=== PATIENT | male | born 1945 | race Caucasian/White ===

== ENCOUNTER 2020-10-04 10:45 | Inpatient (IN) ==
[2020-10-04] MEDS ORDERED: SODIUM CHLORIDE 0.9% 1,000 ML IV STA ×2 (11:18→12:13)
[2020-10-04 11:27] LABS: Basophils % 0.3 % (0.0-0.8); Hematocrit 45.2 VOL% (42.0-52.0); Hemoglobin 14.5 GM/DL (14.0-18.0); Immature Granulocytes % 4.1 %; Immature Granulocytes Absolute 0.44 #; Lymphocytes # 0.3 10*3/uL (1.4-4.0); Lymphocytes % 2.7 % (21.2-54.2); Mean Corpuscular HGB Conc 32.1 GM/DL (32-36); Mean Corpuscular Volume 99.1 FL (87-102); Mean Platelet Volume 9.7 FL (9.6-12.0); Monocytes % 3.7 % (1.7-12.7); Neutrophils % 89.2 % (38.7-73.9); Platelet Count 187 T/CUMM (130-400); Red Blood Count 4.56 MC/CUMM (3.8-5.5); Red Cell Distribution Width 20.3 % (9.3-17.3); White Blood Count 10.7 T/CUMM (4-12)
[2020-10-04 11:46] LABS: PT Patient Result 10.9 SECS (9.8-11.9); Partial Thromboplastin Time 24.9 SECS (23.9-33.8)
[2020-10-04 11:49] LABS: Band Neutrophils 5 % (0-10); Lymphocytes 3 % (20-55); Segmented Neutrophils 90 % (50-85); Total Cells Counted 100
[2020-10-04 11:50] LABS: Platelet Estimate Adequate
[2020-10-04] MEDS ORDERED: PIPERACILLIN/TAZOBACTAM 3,375 MG in SODIUM CHLORIDE 0.9% 100 ML IV STA (12:13)
[2020-10-04] MEDS ORDERED: DEXAMETHASONE 4 MG/1 ML VIAL IV STA (12:13)
[2020-10-04] MEDS ORDERED: SODIUM CHLORIDE 0.9% 500 ML IV STA (12:15)
[2020-10-04 12:21] LABS: Albumin 2.2 G/DL (3.4-5.0); Bilirubin,Total 0.6 MG/DL (0.2-1.0); Calcium 9.8 MG/DL (8.5-10.1); Osmolality,Calculated 281.1 MOS/KG (273-304); Potassium 5.9 MMOL/L (3.5-5.1); Total Protein 6.7 G/DL (5.0-7.5)
[2020-10-04] MEDS ORDERED: DEXTROSE 50% 25 GM/50 ML VIAL IV PRN (15:26)
[2020-10-04] MEDS ORDERED: hydrALAZINE 20 MG/1 ML VIAL IV PRN (15:26)
[2020-10-04] MEDS ORDERED: GLUCAGON 1 MG VIAL IM PRN (15:26)
[2020-10-04] MEDS ORDERED: DOCUSATE SODIUM 100 MG CAPSULE PO PRN (15:26)
[2020-10-04] MEDS ORDERED: ONDANSETRON 4 MG/2 ML VIAL IV PRN (15:26)
[2020-10-04] MEDS ORDERED: SODIUM CHLORIDE 0.9% 1,000 ML IV SCH (15:30)
[2020-10-04 15:52] LABS: Folate 18.1 NG/ML (5.38-24.0)
[2020-10-04 15:55] LABS: Thyroid Stimulating Hormone 1.52 uIU/ml (0.358-3.74)
[2020-10-04] MEDS ORDERED: RITUXIMAB 10 MG/ML IV SCH (16:00)
[2020-10-04] MEDS ORDERED: methylPREDNISolone SOD SUC 40 MG/1 ML VIAL IV SCH (17:00)
[2020-10-04] MEDS: THEOPHYLLINE ER 300 MG TABLET PO SCH (17:25)
[2020-10-04] MEDS: ENOXAPARIN 40 MG/0.4 ML SYRINGE SUBCUT SCH (17:25)
[2020-10-04] MEDS: LIDOCAINE 2% VISCOUS 100 ML BOTTLE SWISH/SPIT SCH ×2 (18:02→20:50)
[2020-10-04] MEDS: DORNASE ALFA 2.5 MG/2.5 ML VIAL RESP TX SCH (20:00)
[2020-10-04] MEDS: ATORVASTATIN 10 MG TABLET PO SCH (20:50)
[2020-10-04] MEDS: HYDROXYCHLOROQUINE 200 MG TABLET PO SCH (20:50)
[2020-10-04] MEDS: PIPERACILLIN/TAZOBACTAM 3,375 MG in SODIUM CHLORIDE 0.9% 100 ML IV SCH (20:59)
[2020-10-05] MEDS: LIDOCAINE 2% VISCOUS 100 ML BOTTLE SWISH/SPIT SCH ×6 (00:57→20:47)
[2020-10-05] MEDS: PIPERACILLIN/TAZOBACTAM 3,375 MG in SODIUM CHLORIDE 0.9% 100 ML IV SCH ×3 (05:00→20:42)
[2020-10-05 06:30] LABS: Basophils % 0.2 % (0.0-0.8); Hematocrit 34.3 VOL% (42.0-52.0); Hemoglobin 11.1 GM/DL (14.0-18.0); Immature Granulocytes % 4.3 %; Immature Granulocytes Absolute 0.24 #; Lymphocytes # 0.2 10*3/uL (1.4-4.0); Lymphocytes % 2.9 % (21.2-54.2); Mean Corpuscular HGB Conc 32.4 GM/DL (32-36); Mean Corpuscular Volume 97.4 FL (87-102); Mean Platelet Volume 9.7 FL (9.6-12.0); Monocytes % 4.7 % (1.7-12.7); Neutrophils % 87.9 % (38.7-73.9); Platelet Count 122 T/CUMM (130-400); Red Blood Count 3.52 MC/CUMM (3.8-5.5); Red Cell Distribution Width 19.6 % (9.3-17.3); White Blood Count 5.6 T/CUMM (4-12)
[2020-10-05 06:47] LABS: Calcium 8.4 MG/DL (8.5-10.1); Osmolality,Calculated 282.4 MOS/KG (273-304); Potassium 3.9 MMOL/L (3.5-5.1)
[2020-10-05 07:07] LABS: Band Neutrophils 4 % (0-10); Hypochromasia Slight; Lymphocytes 4 % (20-55); Metamyelocytes 1 %; Microcytosis 1+; Myelocytes 1 %; Segmented Neutrophils 88 % (50-85); Total Cells Counted 100
[2020-10-05 07:08] LABS: Platelet Estimate Adequate
[2020-10-05] MEDS ORDERED: SENNA 8.6 MG TABLET PO SCH (09:00)
[2020-10-05] MEDS: THEOPHYLLINE ER 300 MG TABLET PO SCH ×2 (09:06→17:20)
[2020-10-05] MEDS: amLODIPine 10 MG TABLET PO SCH (09:06)
[2020-10-05] MEDS: PANTOPRAZOLE 40 MG TABLET PO SCH (09:06)
[2020-10-05] MEDS: DEXAMETHASONE 4 MG/1 ML VIAL IV SCH (09:06)
[2020-10-05] MEDS: METOPROLOL SUCCINATE XL 25 MG TABLET PO SCH (09:06)
[2020-10-05] MEDS: HYDROXYCHLOROQUINE 200 MG TABLET PO SCH ×2 (09:06→20:42)
[2020-10-05] MEDS: MULTIVITAMIN LIQUID (CENTRUM) 60 ML BOTTLE PO SCH (09:07)
[2020-10-05] MEDS: BREO INH SCH (09:08)
[2020-10-05] MEDS: DORNASE ALFA 2.5 MG/2.5 ML VIAL RESP TX SCH ×2 (09:42→19:35)
[2020-10-05] MEDS ORDERED: ALUM/MAG/SIMETH/LIDO VISC 1:1 30 ML BOTTLE PO ONE (20:23)
[2020-10-05] MEDS: ATORVASTATIN 10 MG TABLET PO SCH (20:41)
[2020-10-05] MEDS: SENNA 8.6 MG TABLET PO SCH (20:42)
[2020-10-06] MEDS: LIDOCAINE 2% VISCOUS 100 ML BOTTLE SWISH/SPIT SCH ×6 (00:59→21:33)
[2020-10-06] MEDS: PIPERACILLIN/TAZOBACTAM 3,375 MG in SODIUM CHLORIDE 0.9% 100 ML IV SCH ×3 (03:31→21:32)
[2020-10-06 06:03] LABS: PT Patient Result 10.7 SECS (9.8-11.9); Partial Thromboplastin Time 31.1 SECS (23.9-33.8)
[2020-10-06 06:04] LABS: Basophils % 0.5 % (0.0-0.8); Hematocrit 37.1 VOL% (42.0-52.0); Hemoglobin 12.2 GM/DL (14.0-18.0); Immature Granulocytes % 5.5 %; Immature Granulocytes Absolute 0.36 #; Lymphocytes # 0.1 10*3/uL (1.4-4.0); Lymphocytes % 1.8 % (21.2-54.2); Mean Corpuscular HGB Conc 32.9 GM/DL (32-36); Mean Corpuscular Volume 96.4 FL (87-102); Mean Platelet Volume 9.7 FL (9.6-12.0); Monocytes % 2.1 % (1.7-12.7); NRBC # 0.03 10*3/uL; Neutrophils % 90.1 % (38.7-73.9); Platelet Count 139 T/CUMM (130-400); Red Blood Count 3.85 MC/CUMM (3.8-5.5); Red Cell Distribution Width 19.7 % (9.3-17.3); White Blood Count 6.5 T/CUMM (4-12)
[2020-10-06 06:28] LABS: Band Neutrophils 3 % (0-10); Hypochromasia Slight; Lymphocytes 7 % (20-55); Microcytosis Slight; Nucleated Red Blood Cells 1 (0-5); Platelet Estimate Adequate; Segmented Neutrophils 88 % (50-85); Total Cells Counted 100
[2020-10-06 06:31] LABS: Calcium 8.8 MG/DL (8.5-10.1); Osmolality,Calculated 282.3 MOS/KG (273-304); Potassium 4.5 MMOL/L (3.5-5.1)
[2020-10-06] MEDS: DORNASE ALFA 2.5 MG/2.5 ML VIAL RESP TX SCH ×2 (07:30→20:25)
[2020-10-06] MEDS ORDERED: diphenhydrAMINE 50 MG/1 ML VIAL IM ONE (08:00)
[2020-10-06] MEDS ORDERED: MEPERIDINE 50 MG/1 ML VIAL IM ONE (08:00)
[2020-10-06] MEDS ORDERED: BENZONATATE 100 MG CAPSULE PO ONE (08:00)
[2020-10-06] MEDS ORDERED: LIDOCAINE 2% 20 ML VIAL RESP TX ONE (08:30)
[2020-10-06] MEDS ORDERED: LIDOCAINE 2% VISCOUS 100 ML BOTTLE SWISH/SPIT ONE (08:30)
[2020-10-06] MEDS ORDERED: LIDOCAINE 1% 20 ML VIAL MISC INJ ONE (08:30)
[2020-10-06] MEDS: amLODIPine 10 MG TABLET PO SCH (11:45)
[2020-10-06] MEDS: METOPROLOL SUCCINATE XL 25 MG TABLET PO SCH (11:46)
[2020-10-06] MEDS: PANTOPRAZOLE 40 MG TABLET PO SCH (11:46)
[2020-10-06] MEDS: DEXAMETHASONE 4 MG/1 ML VIAL IV SCH (11:46)
[2020-10-06] MEDS: THEOPHYLLINE ER 300 MG TABLET PO SCH ×2 (11:46→16:13)
[2020-10-06] MEDS: HYDROXYCHLOROQUINE 200 MG TABLET PO SCH ×2 (11:47→21:30)
[2020-10-06] MEDS: BREO INH SCH (11:48)
[2020-10-06] MEDS: MULTIVITAMIN LIQUID (CENTRUM) 60 ML BOTTLE PO SCH (11:48)
[2020-10-06] MEDS: ENOXAPARIN 40 MG/0.4 ML SYRINGE SUBCUT SCH (18:26)
[2020-10-06] MEDS: ATORVASTATIN 10 MG TABLET PO SCH (21:30)
[2020-10-06] MEDS: SENNA 8.6 MG TABLET PO SCH (21:31)
[2020-10-07] MEDS: LIDOCAINE 2% VISCOUS 100 ML BOTTLE SWISH/SPIT SCH ×6 (00:39→21:05)
[2020-10-07 04:29] LABS: Basophils % 0.5 % (0.0-0.8); Hematocrit 37.4 VOL% (42.0-52.0); Hemoglobin 12.2 GM/DL (14.0-18.0); Immature Granulocytes % 4.8 %; Immature Granulocytes Absolute 0.38 #; Lymphocytes # 0.4 10*3/uL (1.4-4.0); Lymphocytes % 4.4 % (21.2-54.2); Mean Corpuscular HGB Conc 32.6 GM/DL (32-36); Mean Corpuscular Volume 97.1 FL (87-102); Mean Platelet Volume 9.3 FL (9.6-12.0); Monocytes % 2.3 % (1.7-12.7); NRBC # 0.03 10*3/uL; Platelet Count 133 T/CUMM (130-400); Red Blood Count 3.85 MC/CUMM (3.8-5.5); Red Cell Distribution Width 19.4 % (9.3-17.3)
[2020-10-07] MEDS: PIPERACILLIN/TAZOBACTAM 3,375 MG in SODIUM CHLORIDE 0.9% 100 ML IV SCH ×3 (04:47→21:05)
[2020-10-07 04:53] LABS: Calcium 8.8 MG/DL (8.5-10.1); Osmolality,Calculated 277.5 MOS/KG (273-304); Potassium 4.4 MMOL/L (3.5-5.1)
[2020-10-07 04:55] LABS: Band Neutrophils 3 % (0-10); Hypochromasia Slight; Lymphocytes 1 % (20-55); Metamyelocytes 1 %; Microcytosis 1+; Segmented Neutrophils 90 % (50-85); Total Cells Counted 100
[2020-10-07] MEDS: DORNASE ALFA 2.5 MG/2.5 ML VIAL RESP TX SCH ×2 (07:28→19:40)
[2020-10-07] MEDS: DEXAMETHASONE 4 MG/1 ML VIAL IV SCH (08:35)
[2020-10-07] MEDS: ALBUTEROL/IPRATROPIUM 3 ML NEB RESP TX PRN (08:45)
[2020-10-07 09:01] LABS: ABG Base Excess -4.4 MMOL/L (-2.5-2.5); ABG HCO3 20.5 MMOL/L (20-26); ABG PCO2 34.9 MM HG (35-48); ABG PH 7.368 (7.35-7.45); ABG PO2 55.8 MM HG (80-95); ABG TCO2 17.5 MMOL/L (23-27)
[2020-10-07] MEDS: MULTIVITAMIN LIQUID (CENTRUM) 60 ML BOTTLE PO SCH (09:37)
[2020-10-07] MEDS: amLODIPine 10 MG TABLET PO SCH (09:37)
[2020-10-07] MEDS: PANTOPRAZOLE 40 MG TABLET PO SCH (09:37)
[2020-10-07] MEDS: HYDROXYCHLOROQUINE 200 MG TABLET PO SCH ×2 (09:37→21:04)
[2020-10-07] MEDS: THEOPHYLLINE ER 300 MG TABLET PO SCH ×2 (09:37→17:06)
[2020-10-07] MEDS: METOPROLOL SUCCINATE XL 25 MG TABLET PO SCH (09:37)
[2020-10-07] MEDS: BREO INH SCH (09:38)
[2020-10-07] MEDS: ENOXAPARIN 40 MG/0.4 ML SYRINGE SUBCUT SCH (17:07)
[2020-10-07] MEDS: ATORVASTATIN 10 MG TABLET PO SCH (21:04)
[2020-10-07] MEDS: SENNA 8.6 MG TABLET PO SCH (21:06)
[2020-10-07] MEDS: ACETAMINOPHEN 325 MG TABLET PO PRN (21:11)
[2020-10-08] MEDS: LIDOCAINE 2% VISCOUS 100 ML BOTTLE SWISH/SPIT SCH ×6 (02:17→21:40)
[2020-10-08] MEDS: PIPERACILLIN/TAZOBACTAM 3,375 MG in SODIUM CHLORIDE 0.9% 100 ML IV SCH (04:52)
[2020-10-08 06:40] LABS: Basophils % 0.4 % (0.0-0.8); Eosinophils % 0.1 % (0.00-10.9); Hematocrit 37.1 VOL% (42.0-52.0); Hemoglobin 12.3 GM/DL (14.0-18.0); Immature Granulocytes % 2.7 %; Immature Granulocytes Absolute 0.19 #; Lymphocytes # 0.2 10*3/uL (1.4-4.0); Lymphocytes % 2.7 % (21.2-54.2); Mean Corpuscular HGB Conc 33.2 GM/DL (32-36); Mean Corpuscular Volume 96.9 FL (87-102); Mean Platelet Volume 9.6 FL (9.6-12.0); Monocytes % 1.7 % (1.7-12.7); Neutrophils % 92.4 % (38.7-73.9); Platelet Count 130 T/CUMM (130-400); Red Blood Count 3.83 MC/CUMM (3.8-5.5); Red Cell Distribution Width 19.2 % (9.3-17.3)
[2020-10-08 06:58] LABS: Calcium 9.1 MG/DL (8.5-10.1); Osmolality,Calculated 278.5 MOS/KG (273-304); Potassium 3.7 MMOL/L (3.5-5.1)
[2020-10-08 07:20] LABS: Band Neutrophils 2 % (0-10); Hypochromasia 1+; Lymphocytes 1 % (20-55); Metamyelocytes 1 %; Microcytosis 1+; Segmented Neutrophils 95 % (50-85); Total Cells Counted 100
[2020-10-08] MEDS: DORNASE ALFA 2.5 MG/2.5 ML VIAL RESP TX SCH ×2 (07:26→19:56)
[2020-10-08] MEDS: METOPROLOL SUCCINATE XL 25 MG TABLET PO SCH (08:18)
[2020-10-08] MEDS: THEOPHYLLINE ER 300 MG TABLET PO SCH ×2 (08:19→17:20)
[2020-10-08] MEDS: PANTOPRAZOLE 40 MG TABLET PO SCH (08:19)
[2020-10-08] MEDS: DEXAMETHASONE 4 MG/1 ML VIAL IV SCH (08:19)
[2020-10-08] MEDS: HYDROXYCHLOROQUINE 200 MG TABLET PO SCH (08:19)
[2020-10-08] MEDS: amLODIPine 2.5 MG TABLET PO SCH (08:19)
[2020-10-08] MEDS: MULTIVITAMIN LIQUID (CENTRUM) 60 ML BOTTLE PO SCH (08:20)
[2020-10-08] MEDS: BREO INH SCH (08:20)
[2020-10-08] MEDS: LEVOFLOXACIN INJ 750 MG in PREMIX 1 EACH IV SCH (12:41)
[2020-10-08] MEDS: ENOXAPARIN 40 MG/0.4 ML SYRINGE SUBCUT SCH (17:20)
[2020-10-08] MEDS: SENNA 8.6 MG TABLET PO SCH (21:37)
[2020-10-08] MEDS: ATORVASTATIN 10 MG TABLET PO SCH (21:37)
[2020-10-08] MEDS: ACETAMINOPHEN 325 MG TABLET PO PRN (21:37)
[2020-10-09] MEDS ORDERED: diphenhydrAMINE 50 MG/1 ML VIAL IV ONE (00:17)
[2020-10-09] MEDS: ZALEPLON 5 MG CAPSULE PO PRN ×2 (00:35→21:32)
[2020-10-09] MEDS: LIDOCAINE 2% VISCOUS 100 ML BOTTLE SWISH/SPIT SCH ×6 (00:35→22:59)
[2020-10-09] MEDS: DORNASE ALFA 2.5 MG/2.5 ML VIAL RESP TX SCH ×2 (07:48→19:48)
[2020-10-09] MEDS: DEXAMETHASONE 4 MG/1 ML VIAL IV SCH (09:31)
[2020-10-09] MEDS: MULTIVITAMIN LIQUID (CENTRUM) 60 ML BOTTLE PO SCH (09:32)
[2020-10-09] MEDS: METOPROLOL SUCCINATE XL 25 MG TABLET PO SCH (09:32)
[2020-10-09] MEDS: LEVOFLOXACIN INJ 750 MG in PREMIX 1 EACH IV SCH (09:32)
[2020-10-09] MEDS: amLODIPine 2.5 MG TABLET PO SCH (09:32)
[2020-10-09] MEDS: PANTOPRAZOLE 40 MG TABLET PO SCH (09:33)
[2020-10-09] MEDS: THEOPHYLLINE ER 300 MG TABLET PO SCH ×2 (09:33→17:18)
[2020-10-09] MEDS: BREO INH SCH (09:48)
[2020-10-09] MEDS: ACETAMINOPHEN 325 MG TABLET PO PRN (11:12)
[2020-10-09] MEDS: ENOXAPARIN 40 MG/0.4 ML SYRINGE SUBCUT SCH (17:18)
[2020-10-09] MEDS: ATORVASTATIN 10 MG TABLET PO SCH (21:32)
[2020-10-09] MEDS: SENNA 8.6 MG TABLET PO SCH (22:58)
[2020-10-10] MEDS: LIDOCAINE 2% VISCOUS 100 ML BOTTLE SWISH/SPIT SCH ×6 (02:11→22:16)
[2020-10-10] MEDS: DORNASE ALFA 2.5 MG/2.5 ML VIAL RESP TX SCH ×2 (07:59→19:49)
[2020-10-10] MEDS: amLODIPine 2.5 MG TABLET PO SCH (08:52)
[2020-10-10] MEDS: PANTOPRAZOLE 40 MG TABLET PO SCH (08:52)
[2020-10-10] MEDS: THEOPHYLLINE ER 300 MG TABLET PO SCH ×2 (08:52→17:21)
[2020-10-10] MEDS: METOPROLOL SUCCINATE XL 25 MG TABLET PO SCH (08:52)
[2020-10-10] MEDS: DEXAMETHASONE 4 MG/1 ML VIAL IV SCH (08:53)
[2020-10-10] MEDS: BREO INH SCH (08:53)
[2020-10-10] MEDS: LEVOFLOXACIN INJ 750 MG in PREMIX 1 EACH IV SCH (08:53)
[2020-10-10] MEDS: MULTIVITAMIN LIQUID (CENTRUM) 60 ML BOTTLE PO SCH (08:53)
[2020-10-10] MEDS: ENOXAPARIN 40 MG/0.4 ML SYRINGE SUBCUT SCH (17:22)
[2020-10-10] MEDS: ZALEPLON 5 MG CAPSULE PO PRN (22:12)
[2020-10-10] MEDS: ATORVASTATIN 10 MG TABLET PO SCH (22:13)
[2020-10-10] MEDS: ACETAMINOPHEN 325 MG TABLET PO PRN (22:13)
[2020-10-10] MEDS: SENNA 8.6 MG TABLET PO SCH (22:16)
[2020-10-11] MEDS ORDERED: diphenhydrAMINE 50 MG/1 ML VIAL IV ONE (01:53)
[2020-10-11] MEDS: LIDOCAINE 2% VISCOUS 100 ML BOTTLE SWISH/SPIT SCH ×6 (02:11→21:27)
[2020-10-11] MEDS: DORNASE ALFA 2.5 MG/2.5 ML VIAL RESP TX SCH ×2 (07:30→19:25)
[2020-10-11] MEDS: PANTOPRAZOLE 40 MG TABLET PO SCH ×2 (08:36→17:35)
[2020-10-11] MEDS: METOPROLOL SUCCINATE XL 25 MG TABLET PO SCH (08:36)
[2020-10-11] MEDS: THEOPHYLLINE ER 300 MG TABLET PO SCH ×2 (08:36→17:35)
[2020-10-11] MEDS: amLODIPine 2.5 MG TABLET PO SCH (08:36)
[2020-10-11] MEDS: LEVOFLOXACIN INJ 750 MG in PREMIX 1 EACH IV SCH (08:36)
[2020-10-11] MEDS: BREO INH SCH (08:37)
[2020-10-11] MEDS: DEXAMETHASONE 4 MG/1 ML VIAL IV SCH (08:37)
[2020-10-11] MEDS: MULTIVITAMIN LIQUID (CENTRUM) 60 ML BOTTLE PO SCH (08:37)
[2020-10-11] MEDS ORDERED: DOCUSATE SODIUM 100 MG CAPSULE PO PRN (10:36)
[2020-10-11] MEDS: FLUCONAZOLE 200 MG TABLET PO SCH (10:53)
[2020-10-11] MEDS: POLYETHYLENE GLYCOL POWDER 17 GM PACK PO SCH (10:53)
[2020-10-11] MEDS: CLORAZEPATE 3.75 MG TABLET PO SCH ×2 (14:04→21:23)
[2020-10-11] MEDS: CLOTRIMAZOLE 10 MG TROCHE PO SCH ×3 (14:04→21:35)
[2020-10-11] MEDS: NICOTINE 21 MG/24 HR PATCH TRANSDERM SCH (15:15)
[2020-10-11] MEDS: ZINC OXIDE PASTE 113 GM TUBE TOP SCH ×2 (15:17→21:26)
[2020-10-11] MEDS: ENOXAPARIN 40 MG/0.4 ML SYRINGE SUBCUT SCH (17:35)
[2020-10-11] MEDS: ATORVASTATIN 10 MG TABLET PO SCH (21:23)
[2020-10-11] MEDS: SENNA 8.6 MG TABLET PO SCH (21:24)
[2020-10-12] MEDS: LIDOCAINE 2% VISCOUS 100 ML BOTTLE SWISH/SPIT SCH ×6 (01:04→21:14)
[2020-10-12] MEDS: CLOTRIMAZOLE 10 MG TROCHE PO SCH ×5 (05:36→21:12)
[2020-10-12] MEDS: PANTOPRAZOLE 40 MG TABLET PO SCH ×2 (06:40→17:34)
[2020-10-12] MEDS: DORNASE ALFA 2.5 MG/2.5 ML VIAL RESP TX SCH ×2 (07:20→19:31)
[2020-10-12] MEDS: DEXAMETHASONE 4 MG/1 ML VIAL IV SCH (08:32)
[2020-10-12] MEDS: NICOTINE 21 MG/24 HR PATCH TRANSDERM SCH (08:32)
[2020-10-12] MEDS: FLUCONAZOLE 200 MG TABLET PO SCH (08:33)
[2020-10-12] MEDS: THEOPHYLLINE ER 300 MG TABLET PO SCH ×2 (08:33→16:05)
[2020-10-12] MEDS: METOPROLOL SUCCINATE XL 25 MG TABLET PO SCH (08:33)
[2020-10-12] MEDS: POLYETHYLENE GLYCOL POWDER 17 GM PACK PO SCH (08:33)
[2020-10-12] MEDS: CLORAZEPATE 3.75 MG TABLET PO SCH ×3 (08:33→21:12)
[2020-10-12] MEDS: amLODIPine 2.5 MG TABLET PO SCH (08:33)
[2020-10-12] MEDS: ZINC OXIDE PASTE 113 GM TUBE TOP SCH ×2 (08:34→21:11)
[2020-10-12] MEDS: MULTIVITAMIN LIQUID (CENTRUM) 60 ML BOTTLE PO SCH (08:35)
[2020-10-12] MEDS: BREO INH SCH (08:35)
[2020-10-12] MEDS: LEVOFLOXACIN INJ 500 MG in PREMIX 1 EACH IV SCH (08:36)
[2020-10-12] MEDS: ENOXAPARIN 40 MG/0.4 ML SYRINGE SUBCUT SCH (17:11)
[2020-10-12] MEDS: ATORVASTATIN 10 MG TABLET PO SCH (21:12)
[2020-10-12] MEDS: SENNA 8.6 MG TABLET PO SCH (21:12)
[2020-10-13] MEDS: LIDOCAINE 2% VISCOUS 100 ML BOTTLE SWISH/SPIT SCH ×2 (03:10→05:34)
[2020-10-13 05:41] LABS: Basophils % 0.3 % (0.0-0.8); Hematocrit 37.5 VOL% (42.0-52.0); Immature Granulocytes Absolute 0.35 #; Lymphocytes # 0.3 10*3/uL (1.4-4.0); Lymphocytes % 4.4 % (21.2-54.2); Mean Corpuscular Volume 96.9 FL (87-102); Mean Platelet Volume 10.9 FL (9.6-12.0); Monocytes % 1.8 % (1.7-12.7); NRBC # 0.02 10*3/uL; Neutrophils % 88.5 % (38.7-73.9); Platelet Count 113 T/CUMM (130-400); Red Blood Count 3.87 MC/CUMM (3.8-5.5); Red Cell Distribution Width 18.7 % (9.3-17.3); White Blood Count 7.1 T/CUMM (4-12)
[2020-10-13 05:56] LABS: Albumin 1.7 G/DL (3.4-5.0); Bilirubin,Total 1.2 MG/DL (0.2-1.0); Calcium 9.1 MG/DL (8.5-10.1); Osmolality,Calculated 283.7 MOS/KG (273-304); Potassium 4.4 MMOL/L (3.5-5.1); Total Protein 5.4 G/DL (6.4-8.2)
[2020-10-13 06:03] LABS: Band Neutrophils 2 % (0-10); Hypochromasia 1+; Lymphocytes 2 % (20-55); Microcytosis 1+; Platelet Estimate Decreased; Segmented Neutrophils 92 % (50-85); Total Cells Counted 100
[2020-10-13] MEDS: PANTOPRAZOLE 40 MG TABLET PO SCH ×2 (06:29→17:35)
[2020-10-13] MEDS: CLOTRIMAZOLE 10 MG TROCHE PO SCH ×5 (06:29→21:41)
[2020-10-13] MEDS: DORNASE ALFA 2.5 MG/2.5 ML VIAL RESP TX SCH ×2 (07:55→19:34)
[2020-10-13] MEDS: METOPROLOL SUCCINATE XL 25 MG TABLET PO SCH (08:52)
[2020-10-13] MEDS: CLORAZEPATE 3.75 MG TABLET PO SCH ×3 (08:52→21:34)
[2020-10-13] MEDS: NICOTINE 21 MG/24 HR PATCH TRANSDERM SCH (08:53)
[2020-10-13] MEDS: FLUCONAZOLE 200 MG TABLET PO SCH (08:53)
[2020-10-13] MEDS: amLODIPine 2.5 MG TABLET PO SCH (08:53)
[2020-10-13] MEDS: THEOPHYLLINE ER 300 MG TABLET PO SCH ×2 (08:54→18:05)
[2020-10-13] MEDS: DEXAMETHASONE 4 MG/1 ML VIAL IV SCH (08:54)
[2020-10-13] MEDS: ZINC OXIDE PASTE 113 GM TUBE TOP SCH ×2 (08:55→21:04)
[2020-10-13] MEDS: BREO INH SCH (08:56)
[2020-10-13] MEDS: LEVOFLOXACIN INJ 500 MG in PREMIX 1 EACH IV SCH (08:56)
[2020-10-13] MEDS: POLYETHYLENE GLYCOL POWDER 17 GM PACK PO SCH (10:18)
[2020-10-13] MEDS: MULTIVITAMIN LIQUID (CENTRUM) 60 ML BOTTLE PO SCH (10:23)
[2020-10-13] MEDS: ENOXAPARIN 40 MG/0.4 ML SYRINGE SUBCUT SCH (21:33)
[2020-10-13] MEDS: ATORVASTATIN 10 MG TABLET PO SCH (21:34)
[2020-10-13] MEDS: SENNA 8.6 MG TABLET PO SCH (21:35)
[2020-10-14] MEDS: CLOTRIMAZOLE 10 MG TROCHE PO SCH ×5 (05:54→21:10)
[2020-10-14] MEDS: PANTOPRAZOLE 40 MG TABLET PO SCH ×2 (05:54→18:07)
[2020-10-14] MEDS: DORNASE ALFA 2.5 MG/2.5 ML VIAL RESP TX SCH ×2 (07:47→20:04)
[2020-10-14] MEDS: FLUCONAZOLE 200 MG TABLET PO SCH (09:32)
[2020-10-14] MEDS: CLORAZEPATE 3.75 MG TABLET PO SCH ×3 (09:32→21:10)
[2020-10-14] MEDS: amLODIPine 2.5 MG TABLET PO SCH (09:32)
[2020-10-14] MEDS: METOPROLOL SUCCINATE XL 25 MG TABLET PO SCH (09:33)
[2020-10-14] MEDS: DEXAMETHASONE 4 MG/1 ML VIAL IV SCH (09:33)
[2020-10-14] MEDS: NICOTINE 21 MG/24 HR PATCH TRANSDERM SCH (09:33)
[2020-10-14] MEDS: MULTIVITAMIN LIQUID (CENTRUM) 60 ML BOTTLE PO SCH (09:33)
[2020-10-14] MEDS: BREO INH SCH (09:34)
[2020-10-14] MEDS: ZINC OXIDE PASTE 113 GM TUBE TOP SCH (09:34)
[2020-10-14] MEDS: LEVOFLOXACIN INJ 500 MG in PREMIX 1 EACH IV SCH (09:34)
[2020-10-14] MEDS: THEOPHYLLINE ER 300 MG TABLET PO SCH (09:46)
[2020-10-14] MEDS: POLYETHYLENE GLYCOL POWDER 17 GM PACK PO SCH (10:29)
[2020-10-14] MEDS: THEOPHYLLINE ER (24 HR) 400 MG TABLET PO SCH ×2 (11:56→16:17)
[2020-10-14] MEDS: ATORVASTATIN 10 MG TABLET PO SCH (21:10)
[2020-10-14] MEDS: ENOXAPARIN 40 MG/0.4 ML SYRINGE SUBCUT SCH (21:10)
[2020-10-14] MEDS: SENNA 8.6 MG TABLET PO SCH (21:17)
[2020-10-15] MEDS: CLOTRIMAZOLE 10 MG TROCHE PO SCH ×5 (06:10→21:13)
[2020-10-15] MEDS: PANTOPRAZOLE 40 MG TABLET PO SCH ×2 (06:10→17:35)
[2020-10-15] MEDS: ZINC OXIDE PASTE 113 GM TUBE TOP SCH ×3 (06:12→21:07)
[2020-10-15] MEDS: DORNASE ALFA 2.5 MG/2.5 ML VIAL RESP TX SCH ×2 (07:02→19:25)
[2020-10-15] MEDS: LEVOFLOXACIN INJ 500 MG in PREMIX 1 EACH IV SCH (08:24)
[2020-10-15] MEDS: FLUCONAZOLE 200 MG TABLET PO SCH (08:25)
[2020-10-15] MEDS: METOPROLOL SUCCINATE XL 25 MG TABLET PO SCH (08:26)
[2020-10-15] MEDS: THEOPHYLLINE ER (24 HR) 400 MG TABLET PO SCH ×2 (08:27→16:18)
[2020-10-15] MEDS: amLODIPine 2.5 MG TABLET PO SCH (08:27)
[2020-10-15] MEDS: CLORAZEPATE 3.75 MG TABLET PO SCH ×3 (08:28→21:13)
[2020-10-15] MEDS: MULTIVITAMIN LIQUID (CENTRUM) 60 ML BOTTLE PO SCH (08:29)
[2020-10-15] MEDS: DEXAMETHASONE 4 MG/1 ML VIAL IV SCH (08:29)
[2020-10-15] MEDS: POLYETHYLENE GLYCOL POWDER 17 GM PACK PO SCH (08:32)
[2020-10-15] MEDS: BREO INH SCH (09:23)
[2020-10-15] MEDS: NICOTINE 21 MG/24 HR PATCH TRANSDERM SCH (09:48)
[2020-10-15] MEDS: ENOXAPARIN 40 MG/0.4 ML SYRINGE SUBCUT SCH (21:12)
[2020-10-15] MEDS: SENNA 8.6 MG TABLET PO SCH (21:13)
[2020-10-15] MEDS: ATORVASTATIN 10 MG TABLET PO SCH (21:13)
[2020-10-15] MEDS: ZALEPLON 5 MG CAPSULE PO PRN (21:14)
[2020-10-16] MEDS: CLOTRIMAZOLE 10 MG TROCHE PO SCH ×2 (05:37→09:32)
[2020-10-16] MEDS: PANTOPRAZOLE 40 MG TABLET PO SCH ×2 (05:37→17:33)
[2020-10-16] MEDS: DORNASE ALFA 2.5 MG/2.5 ML VIAL RESP TX SCH ×2 (07:10→19:11)
[2020-10-16] MEDS: POLYETHYLENE GLYCOL POWDER 17 GM PACK PO SCH (08:23)
[2020-10-16] MEDS: DEXAMETHASONE 4 MG/1 ML VIAL IV SCH (08:24)
[2020-10-16] MEDS: MULTIVITAMIN LIQUID (CENTRUM) 60 ML BOTTLE PO SCH (08:25)
[2020-10-16] MEDS: THEOPHYLLINE ER (24 HR) 400 MG TABLET PO SCH ×2 (08:26→16:15)
[2020-10-16] MEDS: NICOTINE 21 MG/24 HR PATCH TRANSDERM SCH (08:26)
[2020-10-16] MEDS: METOPROLOL SUCCINATE XL 25 MG TABLET PO SCH (08:26)
[2020-10-16] MEDS: CLORAZEPATE 3.75 MG TABLET PO SCH ×3 (08:27→21:20)
[2020-10-16] MEDS: FLUCONAZOLE 200 MG TABLET PO SCH (08:28)
[2020-10-16] MEDS: amLODIPine 2.5 MG TABLET PO SCH (08:30)
[2020-10-16] MEDS: LEVOFLOXACIN INJ 500 MG in PREMIX 1 EACH IV SCH (08:31)
[2020-10-16] MEDS: BREO INH SCH (08:35)
[2020-10-16] MEDS: ZINC OXIDE PASTE 113 GM TUBE TOP SCH ×2 (08:35→21:17)
[2020-10-16] MEDS: ATORVASTATIN 10 MG TABLET PO SCH (21:20)
[2020-10-16] MEDS: ENOXAPARIN 40 MG/0.4 ML SYRINGE SUBCUT SCH (21:20)
[2020-10-16] MEDS: SENNA 8.6 MG TABLET PO SCH (21:20)
[2020-10-17] MEDS: PANTOPRAZOLE 40 MG TABLET PO SCH (05:33)
[2020-10-17] MEDS: ALBUTEROL/IPRATROPIUM 3 ML NEB RESP TX PRN (06:10)
[2020-10-17 06:18] LABS: Basophils % 0.4 % (0.0-0.8); Hematocrit 41.8 VOL% (42.0-52.0); Hemoglobin 13.7 GM/DL (14.0-18.0); Immature Granulocytes % 1.9 %; Immature Granulocytes Absolute 0.13 #; Lymphocytes # 0.6 10*3/uL (1.4-4.0); Lymphocytes % 9.5 % (21.2-54.2); Mean Corpuscular HGB Conc 32.8 GM/DL (32-36); Mean Corpuscular Volume 96.1 FL (87-102); Mean Platelet Volume 11.9 FL (9.6-12.0); NRBC # 0.03 10*3/uL; Neutrophils % 87.2 % (38.7-73.9); Platelet Count 70 T/CUMM (130-400); Red Blood Count 4.35 MC/CUMM (3.8-5.5); Red Cell Distribution Width 19.2 % (9.3-17.3); White Blood Count 6.7 T/CUMM (4-12)
[2020-10-17] MEDS ORDERED: methylPREDNISolone SOD SUC 125 MG/2 ML VIAL IV ONE (06:33)
[2020-10-17] MEDS ORDERED: methylPREDNISolone SOD SUC 125 MG/2 ML VIAL ONE (06:33)
[2020-10-17] MEDS ORDERED: MORPHINE 4 MG/1 ML VIAL IV ONE ×2 (06:35→11:59)
[2020-10-17 06:45] LABS: Band Neutrophils 5 % (0-10); Segmented Neutrophils 94 % (50-85); Total Cells Counted 100
[2020-10-17 06:46] LABS: Platelet Estimate Decreased; Polychromasia Slight
[2020-10-17 07:06] LABS: Calcium 9.4 MG/DL (8.5-10.1); Osmolality,Calculated 277.4 MOS/KG (273-304); Potassium 5.1 MMOL/L (3.5-5.1)
[2020-10-17] MEDS: DORNASE ALFA 2.5 MG/2.5 ML VIAL RESP TX SCH (07:14)
[2020-10-17] MEDS: DEXAMETHASONE 4 MG/1 ML VIAL IV SCH (08:20)
[2020-10-17] MEDS: LEVOFLOXACIN INJ 500 MG in PREMIX 1 EACH IV SCH (08:25)
[2020-10-17] MEDS: NICOTINE 21 MG/24 HR PATCH TRANSDERM SCH (08:28)
[2020-10-17] MEDS: POLYETHYLENE GLYCOL POWDER 17 GM PACK PO SCH (08:28)
[2020-10-17] MEDS: BREO INH SCH (08:29)
[2020-10-17] MEDS: MULTIVITAMIN LIQUID (CENTRUM) 60 ML BOTTLE PO SCH (08:30)
[2020-10-17] MEDS ORDERED: LEVALBUTEROL 1.25 MG/3 ML NEB RESP TX ONE ×2 (08:51→08:59)
[2020-10-17] MEDS ORDERED: DOXYCYCLINE HYCLATE 100 MG CAPSULE PO SCH (09:00)
[2020-10-17] MEDS ORDERED: LEVOFLOXACIN 500 MG TABLET PO SCH (09:00)
[2020-10-17 09:27] LABS: ABG Base Excess -1.2 MMOL/L (-2.5-2.5); ABG HCO3 23.2 MMOL/L (20-26); ABG Oxygen Saturation 86.3 % (95-100); ABG PCO2 28.7 MM HG (35-48); ABG PH 7.476 (7.35-7.45); ABG PO2 50.1 MM HG (80-95); ABG TCO2 18.3 MMOL/L (23-27)
[2020-10-17] MEDS ORDERED: methylPREDNISolone SOD SUC 40 MG/1 ML VIAL IV ONE (09:32)
[2020-10-17] MEDS ORDERED: ALBUTEROL/IPRATROPIUM 3 ML NEB RESP TX ONE (09:35)
[2020-10-17] MEDS: amLODIPine 2.5 MG TABLET PO SCH (09:42)
[2020-10-17] MEDS: METOPROLOL SUCCINATE XL 25 MG TABLET PO SCH (09:42)
[2020-10-17] MEDS: FLUCONAZOLE 200 MG TABLET PO SCH (09:42)
[2020-10-17] MEDS: THEOPHYLLINE ER (24 HR) 400 MG TABLET PO SCH (09:44)
[2020-10-17] MEDS: ZINC OXIDE PASTE 113 GM TUBE TOP SCH (09:57)
[2020-10-17] MEDS: ALBUTEROL/IPRATROPIUM 3 ML NEB RESP TX SCH ×2 (10:10→13:08)
[2020-10-17] MEDS ORDERED: MORPHINE 4 MG/1 ML VIAL IV PRN ×2 (10:17→12:16)
[2020-10-17] MEDS: CLORAZEPATE 3.75 MG TABLET PO SCH (10:49)
[2020-10-17 11:50] VITALS: BP 111/95
[2020-10-17] MEDS ORDERED: FUROSEMIDE 20 MG/2 ML VIAL IV ONE (11:57)
[2020-10-17] MEDS ORDERED: CEFEPIME 1,000 MG in SODIUM CHLORIDE 0.9% 100 ML IV SCH (12:00)
[2020-10-17] MEDS ORDERED: LORazepam 2 MG/1 ML VIAL IV PRN (12:12)
[2020-10-17] MEDS ORDERED: methylPREDNISolone SOD SUC 40 MG/1 ML VIAL IV SCH (15:00)
== END 2020-10-17 13:44 | disposition expired | DRG 177 ==
LOC: N.ED 10:45 → N.EDINP 14:56 → SUATTDRO 14:56 → N.5E 16:26
PROVIDERS: ADMIT Internal Medicine; ATTEND Emergency Medicine